=== PATIENT | female | born 1975 | race Two or more races ===

== ENCOUNTER 2024-10-23 14:12 | Emergency (ER) | payer MEDICAID, OTHER ==
[~2024-10-23] VITALS: Ht 157.5 cm; Wt 81.8 kg
--- NOTE | 2024-10-23 14:34 | ED.PDOC ---
HPI Comments This is a 49 year old female EDWINA presenting to the ED with chief complaint of chest pain. EMS reports that the patient had called 911 due to having left sided, non-provoked, sudden chest pain 30 minutes prior to their arrival. EMS relays that the patient had rated her pain as a 5/10 on scene, however, upon arrival to the ED, it is now resolved. Patient states she had associated SOB and left leg pain. Patient notes that her leg pain has been a concern for a month, being followed up by her PCP with no diagnosis currently made at this time. Patient denies any N/V, abdominal pain, headache, dizziness, numbness, weakness, or tingling. Chief Complaint: Chest Pain Time Seen by MD: 14:29 Reviewed Notes: Nurses Notes, Medications, Allergies Allergies: Coded Allergies: Pregabalin (Verified Allergy, Unknown, 10/23/24) Tramadol (Verified Allergy, Unknown, 10/23/24) Information Source: Patient, Emergency Med Personnel Mode of Arrival: EMS Severity: Moderate Timing: Hours Duration: Since onset Prehospital treatment: None Location: Chest (L) Quality: Sharp Onset: At Rest Cardiac Risk Factors: HTN History of: Similar pain in past Past Medical History PAST MEDICAL HISTORY: Anxiety, HTN Past Medical History (Other): Rheumatoid arthritis, Fibromyalgia Surgical History: Cholecystectomy, [employer] History: Denies all [employer] Hx Family History Family History: Reviewed,noncontributory to illness Social History Smoker: Non-Smoker Alcohol: Denies ETOH Use Drugs: Denies Drug Use Lives In: Home Constitutional: denies: chills, diaphoresis, fatigue, fever, malaise, sweats, weakness, others EENTM: denies: blurred vision, double vision, ear bleeding, ear discharge, ear drainage, ear pain, ear ringing, eye pain, eye redness, hearing loss, mouth pain, mouth swelling, nasal discharge, nose bleeding, nose congestion, nose pain, photophobia, tearing, throat pain, throat swelling, voice changes, others Respiratory: reports: shortness of breath; denies: cough, hemoptysis, orthopnea, SOB at rest, SOB with excertion, stridor, wheezing, others Cardiovascular: reports: chest pain; denies: dizzy spells, diaphoresis, Dyspnea on exertion, edema, irregular heart beat, left arm pain, lightheadedness, palpi tations, PND, syncope, others Gastrointestinal: denies: abdomen distended, abdominal pain, blood streaked bowels, constipated, diarrhea, dysphagia, difficulty swallowing, hematemesis, melena, nausea, poor appetite, poor fluid intake, rectal bleeding, rectal pain, vomiting, others Genitourinary: denies: abnormal vagina bleeding, burning, dyspareunia, dysuria, flank pain, frequency, hematuria, incontinence, pain, , vagina discharge, urgency, others Neurological: denies: dizziness, fainting, headache, left sided numbness, left sided weakness, numbness, paresthesia, pre-existing deficit, right sided numbness, right sided weakness, seizure, speech problems, tingling, tremors, weakness, others Musculoskeletal: reports: muscle pain; denies: back pain, gout, joint pain, joint swelling, muscle stiffness, neck pain, others Integumetry: denies: bruises, change in color, change in hair/nails, dryness, laceration, lesions, lumps, rash, wounds, others Allergic/Immunocompromised: denies: Difficulty Healing, Frequent Infections, Hives, Itching, others Hematologic/Lymphatic: denies: anemia, blood clots, easy bleeding, easy bruising, swollen glands, others Endocrine: denies: excessive hunger, excessive sweating, excessive thirst, excessive urination, flushing, intolerance to cold, intolerance to heat, unexplained weight gain, unexplained weight loss, others Psychiatric: denies: anxiety, bipolar disorder, depression, hopeless, panic disorder, schizophrenia, sleepless, suicidal, others All Other Systems: Reviewed and Negative Physical Exam General Appearance: Moderate Distress, Normal HEENT: Normal ENT Inspection, Pharynx Normal, TMs Normal Neck: Full Range of Motion, Non-Tender, Normal, Normal Inspection Respiratory: Chest Non-Tender, Lungs Clear, No Accessory Muscle Use, No Respiratory Distress, Normal Breath Sounds Cardiovascular: No Edema, No JVD, No Murmur, No Gallop, Normal Peripheral Pulses, Regular Rate/Rhythm Breast Exam: Deferred Gastrointestinal: No Organomegaly, Non Tender, No Pulsatile Mass, Normal Bowel Sounds, Soft Genitalia: Deferred Pelvic: Deferred Rectal: Deferred Extremities: No calf tenderness, Normal capillary refill, Normal inspection, Normal range of motion, Non-tender, No pedal edema Musculoskeletal : Apperance: Normal Neurologic: Alert, [employer] professor II-XII nml as Tested, No Motor Deficits, Normal Affect, Normal Mood, No Sensory Deficits Cerebellar Function: Normal Reflexes: Normal Skin: Dry, Normal Color, Warm Peripheral Pulses: 3+ Radial (R), 3+ Radial (L) Lymphatic: No Adenopathy EKG EKG : Pulse Rate (adult): 77 [place]: Normal Cardiac Rhythm: NSR Block: None Hypertrophy: None ST: Normal Was a procedure done? Was a procedure done?: No CP Differential Dx Differential Diagnosis: A-fib, A-Flutter, Angina, Anxiety / Panic Attack, Atrial Dysrhythmia, Electrolyte Disorder X-Ray, Labs, Meds, VS Vital Signs Date Time Temp Pulse Resp B/P (MAP) Pulse Ox O2 Delivery O2 Flow Rate FiO2 10/23/24 14:35 77 10/23/24 14:19 98.4 74 18 146/80 (102) 97 98.4 10/23/24 14:18 77 Lab Test 10/23/24 14:29 Range/Units Sodium Level Pending Potassium Level Pending Chloride Level Pending Carbon Dioxide Level Pending Anion Gap Pending Blood Urea Nitrogen Pending Creatinine Pending Glomerular Filtration Rate Calc Pending BUN/Creatinine Ratio Pending Serum Glucose Pending Calcium Level Pending Troponin I High Sensitivity Pending Patient alert. Complaining of chest pain. EKG reviewed does not show any acute changes. Vitals stable. Saturation pristine on room air. No leg swelling. Heart rate within normal limits. Respiratory rate within normal limits. Explained to the patient. Was told to follow up with her primary care physician. Was told to come back if there is any problem. Time of 1ST Reevaluation: 15:29 Reevaluation 1ST: Improved Patient Education/Counseling: Diagnosis, Treatment Family Education/Counseling: No Family Present SEPSIS Sepsis Screen Physician Orders Troponin-I Hs (10/23/24 14:15) Urinalysis (10/23/24 14:15) Basic Metabolic Panel (10/23/24 14:15) Troponin-I Hs (10/23/24 15:15) Troponin-I Hs (10/23/24 17:15) Electrocardigram (10/23/24 14:37) Chest Portable (10/23/24 14:36) Vital Signs Date Time Temp Pulse Resp B/P (MAP) Pulse Ox O2 Delivery O2 Flow Rate FiO2 10/23/24 14:35 77 10/23/24 14:19 98.4 74 18 146/80 (102) 97 98.4 10/23/24 14:18 77 Departure 1 Departure Time of Disposition: 14:43 Impression: Primary Impression: Musculoskeletal chest pain Disposition: 01 HOME / SELF CARE / HOMELESS Condition: Good Discharged With: Self Critical Care Note Critical Care Time?: No Stability Stability form required: No Heart Score Heart Score: Heart Score Response (Comments) Value History Moderate Suspicious 1 EKG Normal 0 Age 45-64 1 Risk Factors 1 or 2 risk factors 1 Troponin Normal limit 0 Total 3 I personally scribed for NUBIA BARBOSA MD ([email or web address]) on 10/23/24 at 14:34. Electronically submitted by Abhi Matamoros ([email or web address]). I personally scribed for NUBIA BARBOSA MD ([email or web address]) on 10/23/24 at 14:35. Electronically submitted by Abhi Matamoros ([email or web address]). NUBIA BARBOSA MD Oct 23, 2024 14:34
[2024-10-23 14:51] LABS: Chloride 106 mmol/L (98-107); Potassium 4.0 mmol/L (3.5-5.1); Sodium 143 mmol/L (136-145)
[2024-10-23 14:52] LABS: Anion Gap 7 (5-15); Carbon Dioxide 30 mmol/L (20-31)
[2024-10-23 14:53] LABS: Calcium 9.2 mg/dL (8.7-10.4)
[2024-10-23 14:57] LABS: BUN/Creatinine Ratio 25.0 (10.0-20.0); Blood Urea Nitrogen 18 mg/dL (9-23); Glucose 74 mg/dL (74-106)
--- NOTE | 2024-10-23 15:07 | DVH ---
CHEST RADIOGRAPH Indication: SOB Technique: Single frontal view of the chest was obtained Comparison: None FINDINGS: Lines and Tubes: None Lungs: No focal consolidation. Pleura: No effusion. No pneumothorax. Cardiomediastinal contours: Unremarkable Bones: No acute osseous abnormality. IMPRESSION: 1. No acute cardiopulmonary disease.
[2024-10-23] MEDS: LORazepam 2MG/ML-1ML VIAL IV ONE (15:22)
[2024-10-23 15:36] VITALS: PULSE 70; RESP 20; O2SAT 96
[2024-10-23] MEDS: HYDROcodone-ACET 5/325MG TAB PO ONE (16:22)
[2024-10-23 16:36] LABS: Urine Protein, UAD TRACE (Negative)
[2024-10-23 17:21] VITALS: BP 135/77; PULSE 86; RESP 20; TEMP 97.7; O2SAT 99
--- NOTE | 2024-10-23 18:47 | ECG ---
[facility] Test Date: 2024-10-23 Test Time: 14:16:56 Pat Name: TAWANA RENTERIA Department: ED Room: Gender: F [employer] Maker: TYLER : 1975 Requested By: NUBIA BARBOSA Order Number: [id number] Reading MD: Measurements Intervals [place] Rate: 77 P: 45 [place]: 166 QRS: 39 QRSD: 90 T: 50 QT: 385 QTc: 436 Interpretive Statements Sinus rhythm Please click the below link to view image of tracing.
== END 2024-10-23 17:25 | disposition home or self-care (01) ==
LOC: EDBD 14:12 → ER 14:12
DX: R07.89 Other chest pain (principal); F41.9 Anxiety disorder, unspecified; I10 Essential (primary) hypertension; M06.9 Rheumatoid arthritis, unspecified; M79.7 Fibromyalgia; Z90.49 Acquired absence of other specified parts of digestive tract; Z88.5 Allergy status to narcotic agent; Z98.890 Other specified postprocedural states
CPT/HCPCS: 36415; 71045; 80048; 81001; 84484; 93005; 96374; 99285; J2060